=== PATIENT | male | born 1960 | race Caucasian/White ===

== ENCOUNTER 2021-04-27 09:03 | Outpatient (CLI) | payer MEDICARE, SELFPAY ==
--- NOTE | ~2021-04-27 | US_ITS ---
US right upper quadrant DATE: 04/27/2021 09:48 INDICATION: Viral hepatitis C TECHNIQUE: Real-time imaging of liver, pancreas, gallbladder areas COMPARISON: None FINDINGS: No hepatic or pancreatic space-occupying mass lesion is evident. Pancreatic visualization i s somewhat limited due to overlying bowel gas. Normal hepatopedal portal venous flow direction. Mobile shadowing approximately 7 x 12 mm gallstone is noted. No gallbladder wall thickening or perich olecystic fluid. Negative sonographic Bell's sign. Common bile duct measures 4 mm, normal. IMPRESSION: Cholelithiasis Reviewed, dictated and finalized at [facility] Reviewed, dictated and finalized at [facility] [employer] IMPRESSION: Cholelithiasis
== END 2021-04-27 09:04 | disposition home or self-care (01) ==
LOC: ANHIMG 09:05
PROVIDERS: PCP Internal Medicine; Visit Provider Internal Medicine Gastroenterology
DX: B19.20 Unspecified viral hepatitis C without hepatic coma (principal); K80.20 Calculus of gallbladder without cholecystitis without obstruction
CPT/HCPCS: 76705